=== PATIENT | male | born 1955 | race Caucasian/White ===

== ENCOUNTER → 2016-08-04 | Outpatient (CLI) | payer OTHER ==
[~2016-08-04] MED LIST: ACET-732 PO; DOXA4TAB3 PO; FEXO1TAB8 PO; FINA5TAB42 PO; HYDR-4072 PO; MELO15TA12 PO; METO-68 PO; PRIM50TA30 PO; SIMV40TA5 PO; ZOLP-109 PO
--- NOTE | 2016-08-04 14:46 | DI ---
EXAM: US VENOUS DUPLEX, LOWER EXT LT LOCATION OF DICTATION: [place] HISTORY: ITS.REASON: R79.9 ELEVATED D DIMER COMPARISON: No prior studies available for comparison. TECHNIQUE: Multiple real-time grayscale sonographic images were obtained of the left lower extremity with color flow and spectral analysis. FINDINGS: The left common femoral, femoral, deep femoral, popliteal, posterior tibial, and peroneal veins are widely patent without filling defects. These vessels demonstrate normal response to augmentation and compression. There are no abnormal fluid collections within the surrounding soft tissues. IMPRESSION: No evidence for left lower extremity deep venous thrombosis. .
== END ==
LOC: IMA 13:38
PROVIDERS: ATTEND Family Medicine
DX: R79.89 Other specified abnormal findings of blood chemistry (principal)